=== PATIENT | female | born 1970 | race Asian ===

== ENCOUNTER 2017-10-13 17:51 | Emergency (ER) | payer BC ==
[~2017-10-13] VITALS: Ht 170.2 cm; Wt 73.0 kg
[~2017-10-13 17:51] MED LIST: CHOL1CAP6 PO; LEVO50TA4 PO; LORTA5 PO
[2017-10-13 18:03] VITALS: BP 161/84; PULSE 77; RESP 16; TEMP 98.1; O2SAT 100
[2017-10-13] MEDS ORDERED: LEVO75TA3 PO (18:12)
--- NOTE | 2017-10-13 18:33 | PD ---
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 She states she had her last menstrual cycle about a week ago. She states that her last cycle also was a little abnormal. She confirms she had a D&C at 37 years old after a intrauterine demise at 9 weeks. Quality is bright red bleeding. Patient states she was concerned given she passed clots when she went to the bathroom. Duration is an hour and a half. She denies any other concurrent complaints. PFSH Past Medical History Cancer: No Cardiovascular Problems: No Diabetes: No Endocrine: Yes Genitourinary: No Hepatitis: No Hiatal Hernia: No Immune Disorder: No Musculoskeletal: No Neurologic: No Psychiatric: No Reproductive: No Respiratory: No Thyroid Disease: Yes (NODULAR) ?: Unknown Past Surgical History AICD: No Gynecologic Surgery: Yes (D&C) Joint Replacement: No Pacemaker: No Other Surgery: Yes Social History Alcohol Use: No Tobacco Use: No Substance Use: No Allergies-Medications (Allergen,Severity, Reaction): Coded Allergies: penicillin G (Unverified Allergy, Severe, Rash, 10/13/17) Reported Meds & Prescriptions Reported Meds & Active Scripts Active Reported Levothyroxine (Levothyroxine Sodium) 75 Mcg Tab 75 Mcg PO DAILY Review of Systems Except as stated in HPI: all other systems reviewed are Neg Physical Exam Narrative GENERAL: Well-nourished, well-developed patient. SKIN: Warm and dry. HEAD: Normocephalic and atraumatic. EYES: No injection or drainage. ENT: No nasal drainage noted. NECK: Supple, trachea midline. CARDIOVASCULAR: Regular rate and rhythm RESPIRATORY: Breath sounds equal bilaterally. No accessory muscle use. GASTROINTESTINAL: Abdomen soft, non-tender, nondistended. EXTREMITIES: No edema. GENITOURINARY: Normal external genitalia without lesions or erythema. Vaginal vault with moderate amount of blood. Cervical os was closed with blood draining. Specimens obtain NEUROLOGICAL: Awake and alert. Motor and sensory grossly within normal limits. Normal speech. Data Data Last Documented VS Vital Signs Date Time Temp Pulse Resp B/P (MAP) Pulse Ox O2 Delivery O2 Flow Rate FiO2 10/13/17 18:03 98.1 77 16 161/84 (109) 100 Orders Orders Complete Blood Count With Diff (10/13/17 18:07) Type And Screen (10/13/17 18:07) Iv Access Insert/Monitor (10/13/17 18:07) Ed Urine Pregnancytest Poc (10/13/17 18:07) Beta Hcg (Quant/Titer) (10/13/17 18:20) Wet Prep Profile (10/13/17 18:20) Gc And Chlamydia Pcr (10/13/17 18:20) Ed Discharge Order (10/13/17 19:01) Labs Laboratory Tests Test 10/13/17 18:25 10/13/17 18:35 White Blood Count 8.7 TH/MM3 Red Blood Count 4.81 MIL/MM3 Hemoglobin 12.6 GM/DL Hematocrit 40.2 % Mean Corpuscular Volume 83.6 FL Mean Corpuscular Hemoglobin 26.1 PG Mean Corpuscular Hemoglobin Concent 31.2 % Red Cell Distribution Width 12.7 % Platelet Count 238 TH/MM3 Mean Platelet Volume 7.7 FL Neutrophils (%) (Auto) 60.4 % Lymphocytes (%) (Auto) 29.3 % Monocytes (%) (Auto) 7.2 % Eosinophils (%) (Auto) 2.2 % Basophils (%) (Auto) 0.9 % Neutrophils # (Auto) 5.2 TH/MM3 Lymphocytes # (Auto) 2.6 TH/MM3 Monocytes # (Auto) 0.6 TH/MM3 Eosinophils # (Auto) 0.2 TH/MM3 Basophils # (Auto) 0.1 TH/MM3 CBC Comment DIFF FINAL Differential Comment Clue Cells (Wet Prep) NONE SEEN Vaginal Trichomonas (Wet Prep) NONE SEEN Vaginal Yeast (Wet Prep) NONE SEEN Human Chorionic Gonadotropin, Quant LESS THAN 1 MIU/ML MDM Medical Decision Making Medical Screen Exam Complete: Yes Emergency Medical Condition: Yes Medical Record Reviewed: Yes (past history confirmed) Interpretation(s) CBC & BMP Diagram 10/13/17 18:25 beta is negative Differential Diagnosis Anemia, ectopic, miscarriage, menses Narrative Course Will check CBC, beta, wet prep and monitor ed workup no acute, Patient denies any new complaints, all questions answered. Patient knows that follow up is incumbent on them and to return to the emergency room immediately if new or worsening symptoms develop. Patient given strict return precautions, vitals reviewed and are normal, agrees to further workup as an outpatient. Diagnosis Primary Impression: Vaginal bleeding Patient Instructions: General Instructions Additional Instructions: return as needed, follow with gynecology next week, tylenol as needed Med/Other Pt SpecificInfo: No Change to Meds Disposition: 01 DISCHARGE HOME Condition: Stable Louise Lewis MD Oct 13, 2017 18:33
[2017-10-13 18:35] LABS: AUTOMATED NEUTROPHIL # 5.2 TH/MM3 (1.8-7.7); BASOPHIL # 0.1 TH/MM3 (0-0.2); BASOPHIL % 0.9 % (0.0-2.0); EOSINOPHIL # 0.2 TH/MM3 (0-0.4); EOSINOPHIL % 2.2 % (0.0-4.0); HEMATOCRIT 40.2 % (35.0-46.0); HEMOGLOBIN 12.6 GM/DL (11.6-15.3); LYMPH % 29.3 % (9.0-44.0); LYMPHOCYTE # 2.6 TH/MM3 (1.0-4.8); MEAN CELL VOLUME 83.6 FL (80.0-100.0); MEAN CORPUSCULAR HEMOGLOBIN 26.1 PG (27.0-34.0); MEAN CORPUSCULAR HGB CONC 31.2 % (32.0-36.0); MEAN PLATELET VOLUME 7.7 FL (7.0-11.0); MONO % 7.2 % (0.0-8.0); MONOCYTE # 0.6 TH/MM3 (0-0.9); NEUT % 60.4 % (16.0-70.0); PLATELET COUNT 238 TH/MM3 (150-450); RED BLOOD COUNT 4.81 MIL/MM3 (4.00-5.30); RED CELL DISTRIBUTION WIDTH 12.7 % (11.6-17.2); WHITE BLOOD COUNT 8.7 TH/MM3 (4.0-11.0)
[2017-10-13 19:00] VITALS: BP 140/77; PULSE 67; RESP 14; O2SAT 100
== END 2017-10-13 19:37 | disposition home or self-care (01) ==
LOC: PHED 17:51
DX: N93.9 Abnormal uterine and vaginal bleeding, unspecified (principal); E07.9 Disorder of thyroid, unspecified; Z79.899 Other long term (current) drug therapy; Z88.0 Allergy status to penicillin
CPT/HCPCS: 84702; 85025; 86850; 86900; 86901; 87210; 87491; 87591; 99283